=== PATIENT | male | born 1945 | race Caucasian/White ===

== ENCOUNTER → 2017-03-02 | Outpatient (CLI) | payer MEDICARE, BC ==
[2015-11-17 14:58] VITALS: BP 112/69
[~2017-03-02] MED LIST: FLEC100T PO; FLUT9.9S NS; LISI10TA2 PO; LORA10CA PO; MECL12.5 PO; METF500T4 PO; MULT-404 PO; SIMV40TA3 PO; TEST200V3 IM; WARF5TAB7 PO
--- NOTE | 2017-03-02 14:12 | KCIC ---
EXAM: Left Lower extremity venous Doppler. HISTORY: Left lower extremity swelling COMPARISON: None. FINDINGS: Grayscale and Doppler analysis of the both lower extremity deep venous systems was performed with graded compression and augmentation. The common femoral, greater saphenous, superficial femoral, popliteal and calf veins were assessed. The left common femoral, femoral, and popliteal veins are patent. Limited left lower extremity calf pain survey is unremarkable. IMPRESSION: No evidence of deep venous thrombosis. Electronically signed by: Casey Miranda MD (03/02/2017 2:08 PM) [id number]
== END | disposition home or self-care (01) ==
LOC: KCIC US 12:04
PROVIDERS: ATTEND Family Medicine
DX: M79.89 Other specified soft tissue disorders (principal)
CPT/HCPCS: 93971

== ENCOUNTER → 2017-11-02 | Outpatient (CLI) | payer MEDICARE, BC | END | disposition home or self-care (01) | LOC: ECHO 08:44 | DX: I87.2 Venous insufficiency (chronic) (peripheral) (principal); I51.7 Cardiomegaly | CPT/HCPCS: 93306 ==

== ENCOUNTER → 2018-10-31 | Outpatient (CLI) | payer MEDICARE, BC ==
[2015-11-17 14:58] VITALS: BP 112/69
[~2018-10-31] MED LIST changes: +METF500T16 PO; -METF500T4 PO; +WARF-31 PO; -WARF5TAB7 PO
--- NOTE | 2018-10-31 12:55 | CARD ---
MR#: [id number] Date of Study: 10/31/2018 Ordering Physician: IBAN XIE, Referring Physician: IBAN XIE, Tech: Radha Delgadillo APPROVED REPORT EXAM: Two-dimensional and M-mode echocardiogram with Doppler and color Doppler. Other Information Quality : AverageHR: 71bpm INDICATION Atrial Fibrillation RISK FACTORS Hyperlipidemia Diabetes 2D DIMENSIONS RVDd3.2 (2.9-3.5cm)Left Atrium(2D)3.9 (1.6-4.0cm) IVSd1.4 (0.7-1.1cm)Aortic Root(2D)4.1 (2.0-3.7cm) LVDd5.2 (3.9-5.9cm)LVOT Diameter2.4 (1.8-2.4cm) PWd1.1 (0.7-1.1cm)LVDs3.2 (2.5-4.0cm) FS (%) 38.9 %SV88.9 ml LVEF(%)69.0 (>50%) Aortic Valve AoV Peak Francis.163.8cm/sAoV VTI27.1cm AO Peak GR.10.7mmHgLVOT Peak Francis.97.9cm/s LVOT VTI 20.10cmAO Mean GR.5mmHg ROSCOE (VMAX)1.40ha5FUM (VTI)3.36cm2 AI P 1/2 Ulfo323fe Mitral Valve MV E Cccutcdy34.9cm/sMV DECEL LVUE951pw MV A Gdcohvoj17.8cm/sMV VFN724qk E/A Ratio0.7MVA (PHT)1.98cm2 TDI E/Lateral E'7.1E/Medial E'9.1 Pulmonary Valve PV Peak Ylzqfrxc404.3cm/sPV Peak Grad.5mmHg Tricuspid Valve TR P. Oarlzubd163bc/sRAP AKDEHNPS4haOi TR Peak Gr.95djRkKTWA73qhCd Pulmonary Vein S1 Bgrrxaup03.9cm/sD2 Nyodfhmm30.5cm/s PVa pmzdrbfg419dcuh LEFT VENTRICLE The left ventricle is normal size. There is mild to moderate concentric left ventricular hypertrophy. The left ventricular systolic function is normal and the ejection fraction is within normal range. T he Ejection Fraction is >55%. There is normal LV segmental wall motion. Transmitral Doppler flow dustin sri is Grade I-abnormal relaxation pattern. RIGHT VENTRICLE The right ventricle is normal size. There is normal right ventricular wall thickness. The right ventr icular systolic function is normal. ATRIA The left atrium size is normal. The right atrium size is normal. The interatrial septum is intact wit h no evidence for an atrial septal defect or patent foramen ovale as noted on 2-D or Doppler imaging. AORTIC VALVE The aortic valve is thickened but opens well. Doppler and Color Flow revealed mild aortic regurgitati on. There is no significant aortic valvular stenosis. MITRAL VALVE The mitral valve is normal in structure and function. There is no evidence of mitral valve prolapse. There is no mitral valve stenosis. Doppler and Color Flow revealed no mitral valve regurgitation note d. TRICUSPID VALVE The tricuspid valve is normal in structure and function. Doppler and Color Flow revealed no tricuspid valve regurgitation noted. There is no tricuspid valve stenosis. PULMONIC VALVE The pulmonic valve is not well visualized. Doppler and Color Flow revealed no pulmonic valvular regur gitation. There is no pulmonic valvular stenosis. GREAT VESSELS The aortic root is normal in size. The IVC is normal in size and collapses >50% with inspiration. PERICARDIAL EFFUSION There is no evidence of significant pericardial effusion. Critical Notification Critical Value: No <Conclusion> The left ventricular systolic function is normal and the ejection fraction is within normal range. Th e Ejection Fraction is >55%. There is normal LV segmental wall motion. Signed by : Yahir Johnson, Electronically Approved : 10/31/2018 12:54:59
== END | disposition home or self-care (01) ==
LOC: ECHO 09:50
PROVIDERS: ATTEND Internal Medicine Cardiovascular Disease
DX: I35.1 Nonrheumatic aortic (valve) insufficiency (principal); I48.0 Paroxysmal atrial fibrillation; I51.7 Cardiomegaly; R00.8 Other abnormalities of heart beat; E78.5 Hyperlipidemia, unspecified; E11.9 Type 2 diabetes mellitus without complications
CPT/HCPCS: 93306

== ENCOUNTER → 2019-11-05 | Outpatient (CLI) | payer MEDICARE, BC ==
[2015-11-17 14:58] VITALS: BP 112/69
[~2019-11-05] MED LIST changes: +SIMV40TA18 PO; -SIMV40TA3 PO
--- NOTE | 2019-11-06 12:46 | RAD ---
MR#: [id number] Date of Study: 11/05/2019 Ordering Physician: IBAN XIE, Referring Physician: LUKASZ MONTENEGRO Tech: RT Eloisa (R) (N) APPROVED REPORT Test Type: Pharmacological Stress Nurse/Tech: SHASHANK Anderson ARRT (Laureano) (N) Test Indications: atrial fibrillation Cardiac History: a fib Medications: see EHR Medical History: diabetic Resting ECG: sinus rhythm Resting Heart Rate: 93 bpm Resting Blood Pressure: 126/79mmHg Nurse/Tech Notes Consent: The procedure was explained to the patient in lay terms. Informed consent was witnessed. Ziggy eout was entered into [employer]. History and Stress Test performed by SHASHANK Anderson ARRT (R) (N) Pharm. Details Pharmacologic stress testing was performed using 0.4mg per 5ml of regadenoson given intravenously ove r 7-10 seconds. POST EXERCISE Reason for Termination: Infusion complete Max HR: 101 bpm Max Blood Pressure: 132/67mmHg INTERPRETATION Stress EKG Conclusion: The resting EKG shows a sinus rhythm with PACs and nonspecific ST-T wave wade es. The stress scans show no significant changes from baseline. No EKG evidence of stress-induced ischemia. Imaging Protocol IMAGE PROTOCOL: Rest Tc-99m/stress Tc-99m 2 days Rest: Stress: Viability: Radiopharm.Tc99m InghxqmvpOy72v Sestamibi Dose27.7mCi 30mCi Duration 15min. 15min. Img Date 11/05/2019 11/06/2019 Inj-Img Satj77jtb. 60min. Rest Admin Site:IV - Left AntecubitalAdministrator:MATIAS Blackburn Stress Admin Site: IV - Right AntecubitalAdministrator: SHASHANK Anderson ARRT (R)(N) STRESS DATA End Diast. Vol.85.0mlAv. Heart Rate95.0bpm End Syst. Vol.15.0mlCO Index BSA0.0L/min Myocardial Tmfk229.0gEject. Wxoptupl37.0% Stress Rates Pk. Fill Rate3.74EDV/secLVtime Pk. Fill 157.05msec Pk. Empty Rate6.43ESV/secLVtime Pk. Vxmfl928.37msec 1/3 Pk. Fill2.27EDV/sec Stress Scores Regional WT0.00Summed WT9.00 Regional WM0.00Summed WM0.00 LV Perfusion The stress scans show a slight defect in the inferior lateral wall. The rest scans show a slight defect in the inferior lateral wall. Nuclear imaging shows no reversible ischemia. Nuclear imaging shows a slight fixed defect the inferior lateral wall which is most likely an attenua tion defect but a small previous infarct cannot be entirely excluded. Wall Motion Left ventricular systolic function is normal with no regional wall motion abnormalities and an ejecti on fraction of greater than 70%. LV Perf. Quant 17 Seg. SSS3.00 17 Seg. SRS0.00 17 Seg. SDS3.00 Stress Defect Extent (% LAD)0.00Rest Defect Extent (% LAD)0.00Rev. Defect Extent (% LAD)0.00 Stress Defect Extent (% LCX) 26.30Rest Defect Extent (% LCX)6.30Rev. Defect Extent (% LCX)0.00 Stress Defect Extent (% RCA)0.00Rest Defect Extent (% RCA)0.00Rev. Defect Extent (% RCA)0.00 Stress Defect Extent (% ELVIRA)4.60Rest Defect Extent (% ELVIRA)1.10Rev. Defect Extent (% ELVIRA)0.00 Conclusion 1. No EKG evidence of stress-induced ischemia. 2. Nuclear imaging shows no reversible ischemia. 3. Nuclear imaging shows a slight fixed inferior lateral wall defect which may be an attenuation defe ct but a small previous infarct cannot be entirely excluded. 4. LV systolic function is normal with no regional wall motion abnormalities and ejection fraction of greater than 70%. 5. Moderately low risk Lexiscan nuclear stress test. Signed by : Leonid Maynard MD Electronically Approved : 11/06/2019 12:45:56
== END | disposition home or self-care (01) ==
LOC: NM 09:42
PROVIDERS: ATTEND Internal Medicine Cardiovascular Disease
DX: I48.0 Paroxysmal atrial fibrillation (principal)
CPT/HCPCS: 78452; A9500

== ENCOUNTER → 2019-11-06 | Outpatient (CLI) | payer MEDICARE, BC ==
[2015-11-17 14:58] VITALS: BP 112/69
[~2019-11-06] MED LIST changes: +REGADENOSON 0.4 MG/5 ML DISP.SYRIN. IV ONE
--- NOTE | 2019-11-06 12:14 | CARD ---
MR#: [id number] Date of Study: 11/06/2019 Ordering Physician: IBAN XIE, Referring Physician: IBAN XIE, Tech: Radha Delgadillo APPROVED REPORT EXAM: Two-dimensional and M-mode echocardiogram with Doppler and color Doppler. Other Information Quality : AverageHR: 89bpm Technically limited study due to body habitus. INDICATION Atrial Fibrillation RISK FACTORS Hyperlipidemia Diabetes 2D DIMENSIONS RVDd3.1 (2.9-3.5cm)Left Atrium(2D)2.5 (1.6-4.0cm) IVSd1.5 (0.7-1.1cm)Aortic Root(2D)4.2 (2.0-3.7cm) LVDd4.3 (3.9-5.9cm)LVOT Diameter2.2 (1.8-2.4cm) PWd1.4 (0.7-1.1cm)LVDs2.3 (2.5-4.0cm) FS (%) 47.5 %SV67.2 ml LVEF(%)79.2 (>50%) Aortic Valve AoV Peak Francis.147.5cm/sAoV VTI20.8cm AO Peak GR.8.7mmHgLVOT Peak Francis.115.4cm/s LVOT VTI 21.87cmAO Mean GR.5mmHg ROSCOE (VMAX)2.62wg4CIC (VTI)4.10cm2 Mitral Valve MV E Nrldssmz64.5cm/sMV DECEL YPLP082hs MV A Lvpynyky201.6cm/sMV E Mean Gr.2mmHg MV QHV43ciR/A Ratio0.8 MVA (PHT)2.49cm2 TDI E/Lateral E'9.6E/Medial E'13.1 Pulmonary Valve PV Peak Ywkuraxr902.4cm/sPV Peak Grad.4mmHg Tricuspid Valve TR P. Zwfvvrxe724vr/sRAP IHPEDQAJ2anPs TR Peak Gr.47zoXyVZSB52ftYq Pulmonary Vein S1 Vdhfijht99.8cm/sD2 Huftotoh95.0cm/s PVa psrobyvw622vabf LEFT VENTRICLE The left ventricle is normal size. There is moderate concentric left ventricular hypertrophy. The lef t ventricular systolic function is normal and the ejection fraction is within normal range. EF 55% Th ere is grossly normal wall motion. Technically difficult study due to body habitus Tissue Doppler pam ging reveals moderate left ventricular diastolic dysfunction. RIGHT VENTRICLE The right ventricle is normal size. There is normal right ventricular wall thickness. The right ventr icular systolic function is normal. ATRIA Not well visualized The interatrial septum is intact with no evidence for an atrial septal defect or patent foramen ovale as noted on 2-D or Doppler imaging. AORTIC VALVE The aortic valve is calcified with restricted leaflet motion. Doppler and Color Flow revealed no sign ificant aortic regurgitation. There is no significant aortic valvular stenosis. MITRAL VALVE Not well visualized. There is no evidence of mitral valve prolapse. There is no mitral valve stenosis . Doppler and Color Flow revealed no mitral valve regurgitation noted. TRICUSPID VALVE Not well visualized. Doppler and Color Flow revealed trace tricuspid regurgitation with an estimated PAP of 35 mmHg. There is no tricuspid valve stenosis. PULMONIC VALVE The pulmonic valve is not well visualized. Doppler and Color Flow revealed no pulmonic valvular regur gitation. GREAT VESSELS The aortic root is mildly enlarged. The ascending aorta is Mildly dilated at 4.1 cm The IVC was not v isualized. PERICARDIAL EFFUSION There is no evidence of significant pericardial effusion. Critical Notification Critical Value: No <Conclusion> The left ventricular systolic function is normal and the ejection fraction is within normal range. EF 55% There is grossly normal wall motion. Technically difficult study due to body habitus The ascending aorta is Mildly dilated at 4.1 cm Technically difficult study Signed by : Yahir Johnson, Electronically Approved : 11/06/2019 12:14:02
== END | disposition home or self-care (01) ==
LOC: ECHO 11:34
PROVIDERS: ATTEND Internal Medicine Cardiovascular Disease
DX: I35.8 Other nonrheumatic aortic valve disorders (principal); I48.0 Paroxysmal atrial fibrillation
CPT/HCPCS: 93017; 93306; J2785

== ENCOUNTER 2020-03-26 12:32 | Emergency (ER) | payer MEDICARE, BC ==
[~2020-03-26] VITALS: Ht 177.8 cm; Wt 136.6 kg
[~2020-03-26 12:32] MED LIST changes: -REGADENOSON 0.4 MG/5 ML DISP.SYRIN. IV ONE
[2020-03-26 12:59] VITALS: BP 141/75
[2020-03-26] MEDS ORDERED: VALA10008 PO (13:20)
[2020-03-26] MEDS ORDERED: HYDR-2761 PO (13:20)
--- NOTE | 2020-03-26 13:20 | ED.ADGEN ---
Past Medical History Past Medical History: A-Fib, Diabetes-Type II, High Cholesterol, Hypertension Additional Past Medical Histor: Seasonal Allergies Past Surgical History: Other Additional Past Surgical Histo: Back Sx, Varicose Vein Sx Bx leg,BACK Smoking Status: Never Smoker Alcohol Use: None Drug Use: None General Adult EDM: Chief Complaint: SKIN PROBLEM HPI: HPI: Patient is a 74 year old male who presents to the emergency department with complaints of right flank pain for the last week. Patient reports that today he noticed a blistery rash from his back to his right groin. He denies any fever, dysuria, increased urinary frequency, difficulty voiding, hematuria, cough, abdominal pain, nausea, vomiting, diarrhea, body aches, fatigue, itching, or new environmental exposures. Patient reports that the rash is painful, he currently rates his pain a 6 out of 10 on pain scale, he denies any alleviating factors. Review of Systems: Review of Systems: Complete ROS is negative unless otherwise noted in HPI. Allergies: Allergies: Allergies Coded Allergies Type Severity Reaction Last Updated Verified No Known Drug Allergies 10/20/15 No Physical Exam: PE: See Above Constitutional: Well developed, well nourished, no acute distress, non-toxic appearance, obese. [] HENT: Normocephalic, atraumatic, bilateral external ears normal, nose normal. [] Eyes: PERRLA, EOMI, conjunctiva normal, no discharge. [] Neck: Normal range of motion, no stridor. [] Cardiovascular:Heart rate regular rhythm Lungs & Thorax: Respirations even and unlabored, no retractions, no respiratory distress Abdomen: soft, no tenderness Skin: Warm, dry; erythemic, vesicular rash extending from the right spine around the right flank consistent with shingles Extremities: No cyanosis, ROM intact, no edema. [] Neurologic: Alert and oriented X 3, no focal deficits noted. [] Psychologic: Affect normal, judgement normal, mood normal. [] Current Patient Data: Labs: Complete ROS is negative unless otherwise noted in HPI. Vital Signs: Vital Signs Date Time Temp Pulse Resp B/P (MAP) Pulse Ox O2 Delivery O2 Flow Rate FiO2 03/26/20 12:59 98.2 98 18 141/75 (97) 96 Room Air 98.2 EKG: EKG: [] Heart Score: Risk Factors: Risk Factors: DM, Current or recent (<one month) smoker, HTN, HLP, family history of CAD, obesity. Risk Scores: Score 0 - 3: 2.5% MACE over next 6 weeks - Discharge Home Score 4 - 6: 20.3% MACE over next 6 weeks - Admit for Clinical Observation Score 7 - 10: 72.7% MACE over next 6 weeks - Early Invasive Strategies Radiology/Procedures: Radiology/Procedures: [] Course & Med Decision Making: Course & Med Decision Making Pertinent Labs and Imaging studies reviewed. (See chart for details) [] Dragon Disclaimer: Dragon Disclaimer: This electronic medical record was generated, in whole or in part, using a voice recognition dictation system. Departure Departure Impression: Primary Impression: Shingles outbreak Additional Impression: Acute pain associated with herpes zoster Disposition: 01 DC HOME SELF CARE/HOMELESS Condition: STABLE Referrals: Mike CHAU MD (PCP) Patient Instructions: Shingles, [id number] Additional Instructions: Fill the prescriptions and use them as directed. Follow the instructions provided. Follow-up with your primary care doctor next week for reevaluation, return to the ER if your symptoms worsen. Scripts Acyclovir (ACYCLOVIR) 800 Mg Tablet 1 TAB PO 5XDAY for 7 Days, #35 TAB 0 Refills Prov: RAFITA FULTON [employer] 03/26/20 Hydrocodone Bit/Acetaminophen (HYDROCODONE-APAP 5-325 ) 1 Tab Tablet 0.5-1 TAB PO PRN Q6HRS PRN for SEVERE PAIN 7-10 for 5 Days, #20 TAB 0 Refills Prov: RAFITA FULTON APRN 03/26/20 Problem Qualifiers Primary Impression: Shingles outbreak Herpes zoster complications: without complications Qualified Codes: B02.9 - Zoster without complications RAFITA FULTON [employer] Mar 26, 2020 13:20
[2020-03-26] MEDS ORDERED: ACYC800T PO (13:24)
== END 2020-03-26 13:34 | disposition home or self-care (01) ==
LOC: ER 12:32
DX: B02.8 Zoster with other complications (principal); R10.9 Unspecified abdominal pain; I48.20 Chronic atrial fibrillation, unspecified; E11.9 Type 2 diabetes mellitus without complications; E78.00 Pure hypercholesterolemia, unspecified; I10 Essential (primary) hypertension; Z98.890 Other specified postprocedural states
CPT/HCPCS: 99283

== ENCOUNTER → 2020-11-01 | Outpatient (CLI) | payer MEDICARE, BC ==
[~2020-11-01] MED LIST changes: +ACYC800T88 PO; +HYDR-2761 PO; +LISI10TA16 PO; -LISI10TA2 PO; +VALA10008 PO
--- NOTE | 2020-11-01 12:37 | CARD ---
MR#: [id number] Date of Study: 11/01/2020 Ordering Physician: IBAN XIE, Referring Physician: IBAN XIE Tech: Marisela Blankenship [facility] APPROVED REPORT EXAM: Two-dimensional and M-mode echocardiogram with Doppler and color Doppler. Other Information Quality : Fair Rhythm : NSR INDICATION Chest Pain RISK FACTORS Obesity Hyperlipidemia Diabetes 2D DIMENSIONS Left Atrium(2D)2.8 (1.6-4.0cm)IVSd1.1 (0.7-1.1cm) Aortic Root(2D)4.4 (2.0-3.7cm)LVDd5.0 (3.9-5.9cm) LVOT Diameter2.2 (1.8-2.4cm)PWd1.4 (0.7-1.1cm) LVDs2.4 (2.5-4.0cm)FS (%) 51.4 % SV96.2 mlLVEF(%)82.4 (>50%) Aortic Valve AoV Peak Francis.127.9cm/sAoV VTI27.1cm AO Peak GR.6.5mmHgLVOT Peak Francis.120.0cm/s AO Mean GR.4mmHgAVA (VMAX)3.68cm2 Mitral Valve MV E Opwzqsln92.3cm/sMV DECEL YCMC765ug MV A Nsobnset83.6cm/sE/A Ratio1.0 Pulmonary Valve PV Peak Scmotsgl715.7cm/s LEFT VENTRICLE The left ventricle is normal size. There is borderline to mild concentric left ventricular hypertroph y. The left ventricular systolic function is normal. Estimated ejection fraction 55%. There is audrey l LV segmental wall motion. RIGHT VENTRICLE The right ventricle is normal size. There is normal right ventricular wall thickness. The right ventr icular systolic function is normal. ATRIA The left atrium size is normal. The right atrium size is normal. The interatrial septum is intact wit h no evidence for an atrial septal defect or patent foramen ovale as noted on 2-D or Doppler imaging. AORTIC VALVE The aortic valve is normal in structure and function. Doppler and Color Flow revealed no significant aortic regurgitation. There is no significant aortic valvular stenosis. MITRAL VALVE The mitral valve is normal in structure and function. There is no evidence of mitral valve prolapse. There is no mitral valve stenosis. Doppler and Color Flow revealed no mitral valve regurgitation note d. TRICUSPID VALVE The tricuspid valve is normal in structure and function. Doppler and Color Flow revealed no tricuspid valve regurgitation noted. Unable to estimate PAP. There is no tricuspid valve stenosis. PULMONIC VALVE The pulmonary valve is normal in structure and function. Doppler and Color Flow revealed no pulmonic valvular regurgitation. GREAT VESSELS The aortic root is normal in size. The ascending aorta is normal in size. The IVC is normal in size a nd collapses >50% with inspiration. PERICARDIAL EFFUSION There is no evidence of significant pericardial effusion. Critical Notification Critical Value: No <Conclusion> The left ventricular systolic function is normal. Estimated ejection fraction 55%. There is normal LV segmental wall motion. There is no evidence of significant pericardial effusion. Signed by : Iban Xie, Electronically Approved : 11/01/2020 12:36:47
== END ==
LOC: ECHO 09:36
PROVIDERS: ATTEND Internal Medicine Cardiovascular Disease
DX: I48.0 Paroxysmal atrial fibrillation (principal); I51.7 Cardiomegaly
CPT/HCPCS: 93306

== ENCOUNTER 2021-10-06 15:52 | Emergency (ER) | payer MEDICARE, BC ==
[~2021-10-06] VITALS: Ht 177.8 cm; Wt 136.0 kg
[2021-10-06 15:55] VITALS: BP 163/106
[2021-10-06 16:48] LABS: INFLUENZA A PATIENT NEGATIVE (NEGATIVE); INFLUENZA B PATIENT NEGATIVE (NEGATIVE)
--- NOTE | 2021-10-06 16:55 | PHYS DOC ---
Past Medical History Past Medical History: A-Fib, Diabetes-Type II, High Cholesterol, Hypertension Additional Past Medical Histor: Seasonal Allergies ; shingles Past Surgical History: Other Additional Past Surgical Histo: Back Sx, Varicose Vein Sx Bx leg,BACK Smoking Status: Never Smoker Alcohol Use: None Drug Use: None General Adult EDM: Chief Complaint: FLU SYMPTOM HPI: HPI: Patient is a 75 year old male who presents with temperature reading at home of 94 degrees. Patient is essentially asymptomatic besides a resolving cold that he has. He just bought a new thermometer that he placed under his tongue and got multiple readings of 94. He presents today with a temperature of 98.2. He states that he just got the thermometer and he does not know the quality. He has not calibrated to thermometer either. He feels well, he states that his upper respiratory infection is almost resolved. He was placed on antibiotics by his primary doctor without an exam, he states that the physician called in his amoxicillin without examining him. He states that his illness has slowly resolved Review of Systems: Review of Systems: Constitutional: Denies fever or chills. [] Eyes: Denies change in visual acuity. [] HENT: Denies nasal congestion or sore throat. [] Respiratory: Denies cough or shortness of breath. [] Cardiovascular: Denies chest pain or edema. [] GI: Denies abdominal pain, nausea, vomiting, bloody stools or diarrhea. [] : Denies dysuria. [] Musculoskeletal: Denies back pain or joint pain. [] Integument: Denies rash. [] Neurologic: Denies headache, focal weakness or sensory changes. [] Endocrine: Denies polyuria or polydipsia. [] Lymphatic: Denies swollen glands. [] Psychiatric: Denies depression or anxiety. [] Heart Score: C/O Chest Pain: No Risk Factors: Risk Factors: DM, Current or recent (<one month) smoker, HTN, HLP, family history of CAD, obesity. Risk Scores: Score 0 - 3: 2.5% MACE over next 6 weeks - Discharge Home Score 4 - 6: 20.3% MACE over next 6 weeks - Admit for Clinical Observation Score 7 - 10: 72.7% MACE over next 6 weeks - Early Invasive Strategies Allergies: Allergies: Allergies Coded Allergies Type Severity Reaction Last Updated Verified No Known Drug Allergies 10/20/15 No Physical Exam: PE: Constitutional: Well developed, well nourished, no acute distress, non-toxic appearance. [] HENT: Normocephalic, atraumatic, bilateral external ears normal, oropharynx moist, no oral exudates, nose normal. [] Eyes: PERRLA, EOMI, conjunctiva normal, no discharge. [] Neck: Normal range of motion, no tenderness, supple, no stridor. [] Cardiovascular:Heart rate regular rhythm, no murmur [] Lungs & Thorax: Bilateral breath sounds clear to auscultation [] Abdomen: Bowel sounds normal, soft, no tenderness, no masses, no pulsatile masses. [] Skin: Warm, dry, no erythema, no rash. [] Back: No tenderness, no CVA tenderness. [] Extremities: No tenderness, no cyanosis, no clubbing, ROM intact, no edema. [] Neurologic: Alert and oriented X 3, normal motor function, normal sensory function, no focal deficits noted. [] Psychologic: Affect normal, judgement normal, mood normal. [] Current Patient Data: Labs: Laboratory Tests Test 10/06/21 16:25 Influenza Type A Antigen Negative (NEGATIVE) Influenza Type B Antigen Negative (NEGATIVE) SARS-CoV-2 Antigen (Rapid) Negative (NEGATIVE) Vital Signs: Vital Signs Date Time Temp Pulse Resp B/P (MAP) Pulse Ox O2 Delivery O2 Flow Rate FiO2 10/06/21 15:55 98.2 96 16 163/106 (125) 98 Room Air 98.2 EKG: EKG: [] Radiology/Procedures: Radiology/Procedures: [] Impression: Viral upper respiratory infection Course & Med Decision Making: Course & Med Decision Making Pertinent Labs and Imaging studies reviewed. (See chart for details) 75-year-old male seen and examined by myself. Seems like his thermometer is not calibrated. He has had normal temperatures since he has been here. I advised him that he should calibrate his thermometer. He is essentially asymptomatic at this time. He tested negative for influenza as well as COVID. He will be discharged home, he was hemodynamically stable at time of discharge. All questions answered. He will follow-up with his primary care physician. ER precautions given. Logan Disclaimer: Logan Disclaimer: This electronic medical record was generated, in whole or in part, using a voice recognition dictation system. Departure Departure Impression: Primary Impression: Upper respiratory infection, viral Disposition: HOME / SELF CARE / HOMELESS Condition: GOOD Patient Instructions: Upper Respiratory Infection, Adult, Oekz-jx-Atrq Additional Instructions: Follow-up with your primary care physician in 1 week You may want to calibrate your thermometer You may finish your antibiotics CAMELIA COOPER MD October 06, 2021 16:55
== END 2021-10-06 17:02 | disposition home or self-care (01) ==
LOC: ER 15:52
DX: J06.9 Acute upper respiratory infection, unspecified (principal); B97.89 Other viral agents as the cause of diseases classified elsewhere; Z20.822 Contact with and (suspected) exposure to COVID-19
CPT/HCPCS: 87428; 99283